=== PATIENT | male | born 1990 | race Two or more races ===

== ENCOUNTER 2025-02-03 15:13 | Emergency (ER) | payer OTHER ==
[~2025-02-03] VITALS: Ht 170.2 cm; Wt 104.3 kg
[2025-02-03] MEDS ORDERED: KETOROLAC TROMETHAMINE 30 MG VIAL ONE (17:08)
[2025-02-03] MEDS ORDERED: KETOROLAC TROMETHAMINE 30 MG VIAL IM ONE (17:15)
== END 2025-02-03 18:44 | disposition home or self-care (01) ==
LOC: ER 15:13
DX: M25.562 Pain in left knee (principal)